=== PATIENT | male | born 1970 | race Two or more races ===

== ENCOUNTER 2024-01-13 09:32 | Emergency (ER) | payer OTHER ==
[~2024-01-13] VITALS: Ht 175.3 cm; Wt 81.6 kg
[2024-01-13] MEDS ORDERED: SYMBICORT 16010.2 GM (09:47)
[2024-01-13] MEDS ORDERED: MONTELUKAST SOD10 MG PO (09:47)
[2024-01-13] MEDS ORDERED: AZELASTIN-FLUTI23 GM NS (09:48)
[2024-01-13] MEDS ORDERED: AMOX1TAB5 PO (11:03)
[2024-01-13] MEDS ORDERED: GENTAMICIN SULFA5 ML OP (11:04)
[2024-01-13] MEDS ORDERED: DEXAMETHASONE SODIUM PHOSP/PF 10 MG/ML VIAL IJ STA (11:06)
[2024-01-13] MEDS ORDERED: ORPHENADRINE CITRATE 30 MG/ML AMPUL IM STA (11:07)
[2024-01-13] MEDS ORDERED: ORPHENADRINE CITRATE 30 MG/ML AMPUL ONE (11:15)
[2024-01-13] MEDS ORDERED: DEXAMETHASONE SODIUM PHOSPHATE 4 MG/ML VIAL ONE (11:16)
== END 2024-01-13 11:27 | disposition home or self-care (01) ==
LOC: ER 09:33
DX: R53.81 Other malaise (principal); J06.9 Acute upper respiratory infection, unspecified